=== PATIENT | male | born 2000 | race Caucasian/White ===

== ENCOUNTER 2020-04-05 12:21 | Emergency (ER) | payer OTHER ==
[2020-04-05 12:26] VITALS: BP 113/77; PULSE 82; RESP 16; TEMP 98.9
[2020-04-05] MEDS ORDERED: KETOROLAC 15 MG/ML 1 ML VIAL IM STA (12:51)
[2020-04-05] MEDS ORDERED: PENICILLIN VK 500MG STARTER 4 TAB BTL PO STA (12:51)
--- NOTE | 2020-04-05 13:19 | ED ---
General Adult HPI - General Chief complaint: Dental/Oral Stated complaint: dental pain Time Seen by Provider: 04/05/20 12:33 Source: patient Mode of arrival: ambulatory Limitations: no limitations - History of Present Illness Initial comments: 19-year-old male presents to the emergency room for a chief complaint of dental pain. Patient patient reports that he has had left upper dental pain for the past week. He states it is one certain tooth on his bottom left jaw. Patient denies fevers or chills. Patient states there is some minimal swelling that he has noticed. He denies any difficulty opening his jaw. He denies any difficulty swallowing. No respiratory distress. No swelling under the tongue. Patient states he does have a dentist but has not tried to follow up with them.Patient has no other complaints at this time including shortness of breath, chest pain, abdominal pain, nausea or vomiting, headache, or visual changes. - Related Data Previous Rx's Medication Instructions Recorded Penicillin V Potassium [Pen Vee K] 500 mg PO Q6H 10 Days #40 tablet 04/05/20 Allergies Allergy/AdvReac Type Severity Reaction Status Date / Time No Known Allergies Allergy Verified 04/05/20 12:26 Review of Systems ROS Statement: Those systems with pertinent positive or pertinent negative responses have been documented in the HPI. ROS Other: All systems not noted in ROS Statement are negative. Past Medical History Past Medical History: No Reported History History of Any Multi-Drug Resistant Organisms: None Reported Past Surgical History: No Surgical Hx Reported Past Psychological History: No Psychological Hx Reported Smoking Status: Never smoker Past Alcohol Use History: Occasional Past Drug Use History: Marijuana General Exam Limitations: no limitations General appearance: alert, in no apparent distress Head exam: Present: atraumatic, normal inspection Eye exam: Present: normal appearance, PERRL, EOMI. Absent: scleral icterus, conjunctival injection ENT exam: Present: TM's normal bilaterally. Absent: normal oropharynx (Patient has tenderness to tooth 19. There is no abscess noted with direct visualization or palpation of the gum line. No sublingual edema.) Neck exam: Present: normal inspection, full ROM. Absent: tenderness Respiratory exam: Present: normal lung sounds bilaterally. Absent: respiratory distress, wheezes Cardiovascular Exam: Present: regular rate, normal rhythm, normal heart sounds. Absent: systolic murmur, diastolic murmur, rubs, gallop, clicks GI/Abdominal exam: Present: soft, normal bowel sounds. Absent: distended, tenderness, guarding, rebound, rigid Course Vital Signs 04/05/20 12:24 Temperature 98.9 F Pulse Rate 82 Respiratory 16 Rate Blood Pressure 113/77 O2 Sat by Pulse 98 Oximetry Medical Decision Making - Medical Decision Making Patient has dental pain without evidence of abscess. He'll be treated with penicillin. He does have a dentist they will call on Tuesday. No respirator distress, trismus, difficulty swallowing or noticeable swelling. Patient will return here for any worsening symptoms of these occur. Disposition Clinical Impression: Pain, dental Disposition: HOME SELF-CARE Condition: Good Instructions (If sedation given, give patient instructions): Toothache (ED) Additional Instructions: Please take antibiotic as directed. This was prescribed to your pharmacy. Take Motrin and Tylenol for pain. You can alternate these every 3 hours. Follow-up with your dentist by calling Tuesday for an appointment. Return to the emergency room for any worsening symptoms. Prescriptions: Penicillin V Potassium [Pen Vee K] 500 mg PO Q6H 10 Days #40 tablet Is patient prescribed a controlled substance at d/c from ED?: No Referrals: Tino Bautista [STAFF PHYSICIAN] - 1-2 days Time of Disposition: 13:18
== END 2020-04-05 13:33 | disposition home or self-care (01) ==
LOC: EC 12:21
DX: K08.89 Other specified disorders of teeth and supporting structures (principal)
CPT/HCPCS: 99282; 96372; J1885

== ENCOUNTER 2020-04-06 13:50 | Emergency (ER) | payer OTHER ==
[2020-04-06 13:54] VITALS: BP 132/86; PULSE 65; RESP 20; TEMP 98.4
[2020-04-06] MEDS ORDERED: AMOXIC-POT CLAV 875MG STARTER PACK 2 TAB BTL PO STA (14:12)
[2020-04-06] MEDS ORDERED: ACET/COD 300 MG/30 MG STARTER PACK 6 TAB BTL PO STA (14:12)
[2020-04-06] MEDS ORDERED: MORPHINE SULFATE 2 MG/ML SYRINGE IM STA (14:12)
--- NOTE | 2020-04-06 14:14 | ED ---
ENT HPI - General Chief complaint: Dental/Oral Stated complaint: Revisit Dental Pain Time Seen by Provider: 04/06/20 14:07 Source: patient Mode of arrival: ambulatory Limitations: no limitations - History of Present Illness Initial comments: 19-year-old female presenting for left lower dental pain. pt states for the past 3 days he has had left lower dental pain. states now his left side of face is slightly swollen. he was here the day before and given starter pack/prescribed Pen VK, pt states he has no taken the antibiotics today nor filled the presc ription. He denies any neck swelling swelling below tongue difficulty breathing swallowing or tolerating oral secretions. Patient denies fevers chills or malaise patient states he mainly presents today for the pain remaining review of systems negative upon arrival patient usual nontoxic distress - Related Data Previous Rx's Medication Instructions Recorded Penicillin V Potassium [Pen Vee K] 500 mg PO Q6H 10 Days #40 tablet 04/05/20 Amoxic-Pot Clav 875-125Mg 1 tab PO Q12HR 10 Days #20 tab 04/06/20 [Augmentin 875-125] Allergies Allergy/AdvReac Type Severity Reaction Status Date / Time No Known Allergies Allergy Verified 04/06/20 13:54 Review of Systems ROS Statement: Those systems with pertinent positive or pertinent negative responses have been documented in the HPI. ROS Other: All systems not noted in ROS Statement are negative. Past Medical History Past Medical History: No Reported History History of Any Multi-Drug Resistant Organisms: None Reported Past Surgical History: No Surgical Hx Reported Past Psychological History: No Psychological Hx Reported Smoking Status: Never smoker Past Alcohol Use History: Occasional Past Drug Use History: Marijuana General Exam - General Exam Comments Initial Comments: dental chartGeneral: The patient is awake and alert, in no distress Eye: Pupils are equal, round and reactive to light, extra-ocular movements are intact. No nystagmus. There is normal conjunctiva bilaterally. No signs of icterus. Ears, nose, mouth and throat: There are moist mucous membranes and no oral lesions. pain to percussion of tooth #21. No large area of fluctuance identified. No swelling below tongue no swelling below the angle of the mandible. No tripoding drooling stridor patient is tolerated oral secretions without difficulty.her mild left-sided facial swelling no redness Neck: The neck is supple, there is no tenderness or JVD. Musculoskeletal: Normal ROM, no tenderness. Strength 5/5. Sensation intact. Pulses equal bilaterally 2+. Neurological: A&O x 3. CN II-XII intact grossly, There are no obvious motor or sensory deficits. Coordination appears grossly intact. Speech is normal. Skin: Skin is warm and dry and no rashes. Psychiatric: Cooperative, appropriate mood & affect, normal judgment. Limitations: no limitations Course Vital Signs 04/06/20 04/06/20 13:52 14:36 Temperature 98.4 F 98.4 F Pulse Rate 65 65 Respiratory 20 20 Rate Blood Pressure 132/86 132/86 O2 Sat by Pulse 99 99 Oximetry Medical Decision Making - Medical Decision Making nontoxic 19-year-old male who is afebrile on arrival presented for dental pain. No identifiable drainable abscess. There is possibility of a periapical abscess. Patient was pierced he prescribed penicillin VK patient overall is noncompliant at this time as he has not filled prescription nor taken any doses today. Patient will be prescribed Augmentin instructed to discontinue the penicillin VK as I feel he will have better antibiotic adherence with less dosing. Patient provided starter pack, paper prescription to prevent issues with pharmacy closings on tuesday. She provided pain management in the emergency department. He is to follow-up with dentist tomorrow or within 2-3 days if appointment tomorrow was not possible. Return parameters were discussed patient at this time shows no signs of Jacky angina or systemic spread of infection. Patient discharged appearing well agreeable to care plan. Disposition Clinical Impression: Pain, dental, Dental infection Disposition: HOME SELF-CARE Condition: Good Instructions (If sedation given, give patient instructions): Dental Abscess (ED) Additional Instructions: Please use medication as discussed. Please follow-up with dentist tomorrow, and return for swelling increase/below the tongue or of the neck, fevers, difficulty swallowing, lightheadedness. Please return to emergency room if the symptoms increase or worsen or for any other concerns. Prescriptions: Amoxic-Pot Clav 875-125Mg [Augmentin 875-125] 1 tab PO Q12HR 10 Days #20 tab Is patient prescribed a controlled substance at d/c from ED?: No Referrals: None,Stated [Primary Care Provider] - 1-2 days Time of Disposition: 14:13
== END 2020-04-06 14:37 | disposition home or self-care (01) ==
LOC: EC 13:50
DX: K04.7 Periapical abscess without sinus (principal); Z91.14 Patient's other noncompliance with medication regimen
CPT/HCPCS: 99283; 96372; J2270

== ENCOUNTER 2020-12-31 19:22 | Emergency (ER) | payer OTHER ==
[2020-12-31 20:38] VITALS: BP 126/58; PULSE 97; RESP 18; TEMP 99.7
== END 2020-12-31 22:10 | disposition left against medical advice (07) ==
LOC: EC 19:22
DX: Z53.21 Procedure and treatment not carried out due to patient leaving prior to being seen by health care provider (principal)
CPT/HCPCS: 87081; 87430; 99499